=== PATIENT | male | born 1960 | race American Indian/Alaskan Native ===

== ENCOUNTER 2016-12-07 19:59 | Emergency (ER) | payer MEDICAID ==
[2016-12-07 20:57] LABS: SQUAMOUS EPITHIAL < 1 /hpf (0-5); URINE BACTERIA RARE (<OCC); URINE BILIRUBIN NEGATIVE (NEGATIVE); URINE BLOOD 1+ (NEGATIVE); URINE CLARITY Clear (Clear); URINE COLOR Yellow (YELLOW); URINE GLUCOSE (UA) NORMAL (Normal); URINE LEUKOCYTE ESTERASE NEG Leu/uL (Negative); URINE NITRATE NEGATIVE (NEGATIVE); URINE PROTEIN NEGATIVE (NEGATIVE); URINE UROBILINOGEN NORMAL mg/dL (0.2-1.0)
[2016-12-07 21:00] LABS: BARBITURATES, UR NEGATIVE (NEGATIVE)
[2016-12-07 21:01] LABS: BENZODIAZEPINES, UR NEGATIVE (NEGATIVE)
[2016-12-07 21:03] LABS: BASO % 0.6 % (0.0-2.0); EOS % 0.7 % (0.0-4.0); HEMOGLOBIN 14.7 g/dL (12.0-18.0); LYMPH % 22.7 % (20.0-40.0); MEAN CELL VOLUME 84.8 fL (80.0-94.0); MEAN CORPUSCULAR HEMOGLOBIN 28.2 pg (27.0-31.0); MEAN CORPUSCULAR HGB CONC 33.2 g/dL (33.0-37.0); MEAN PLATELET VOLUME 7.9 fL (7.2-11.7); MONO # 0.5 K/uL (0.0-0.8); MONO % 10.7 % (0.0-10.0); NEUT # 2.8 K/uL (1.8-7.0); NEUT % 65.3 % (50.0-75.0); RBC 5.2 Mil/uL (4.40-5.90); RED CELL DISTRIBUTION WIDTH 15.1 % (11.5-14.5); WHITE BLOOD COUNT 4.3 K/uL (4.8-10.8)
[2016-12-07 21:04] LABS: OPIATES, UR POSITIVE (NEGATIVE)
[2016-12-07 21:05] LABS: PHENCYCLIDINE, UR NEGATIVE (NEGATIVE)
[2016-12-07 21:11] LABS: ALBUMIN 4.1 g/dL (3.5-5.0)
[2016-12-07 21:14] LABS: ALB/GLOB RATIO 1.2 (1.0-2.1); AST/SGOT 39 U/L (17-59); BLOOD UREA NITROGEN 18 mg/dL (9-20); GFR AFRICAN-AMERICAN > 60; GFR NON-AFRICAN AMERICAN > 60
[2016-12-07 21:15] LABS: ALT/SGPT 42 U/L (21-72); CALCIUM 9.3 mg/dl (8.6-10.4); LIPASE 26 U/L (23-300)
--- NOTE | 2016-12-07 21:43 | C.PDOC ---
History Of Present Illness A 56 y/o M c/o cramping lower abdominal pain that began today. Pt is a persistent heroin abuser and admits to using 5 bags up his nose today. Denies fever, chills, nausea, vomiting, diarrhea, chest pain, SOB, or any other complaints. Time Seen by Provider: 12/07/16 20:28 Chief Complaint (Nursing): Abdominal Pain History Per: Patient History/Exam Limitations: no limitations Onset/Duration Of Symptoms: Hrs Current Symptoms Are (Timing): Still Present Severity: Mild Location Of Pain/Discomfort: LUQ, LLQ Radiation Of Pain To:: None Quality Of Discomfort: Cramping Recent travel outside of the [place]: No Additional History Per: Patient Past Medical History Reviewed: Historical Data, Nursing Documentation, Vital Signs Vital Signs: Last Vital Signs Temp 97.6 F 12/07/16 21:50 Pulse 59 L 12/07/16 21:50 Resp 16 12/07/16 21:50 BP 118/67 12/07/16 21:50 Pulse Ox 98 12/07/16 21:50 - Medical History PMH: Anxiety, Bipolar Disorder, COPD, Depression, Emphysema, HTN Denies: Diabetes, Hepatitis, HIV, Seizures, Sexually Transmitted Disease - [facility] Procedures DETOXIFICATION SERVICES FOR SUBSTANCE ABUSE TREATMENT (08/11/15) DRUG DETOXIFICATION (10/29/14) INDIV PSYCHOTHERAPY FOR SUBSTANCE ABUSE TREATMENT, SUPPORT (08/11/15) NONEXCIS DEBRID OF WOUND, INFECT, OR BURN (10/29/14) Family History: States: Unknown Family Hx - Social History Hx Tobacco Use: Yes Hx Alcohol Use: Yes Hx Substance Use: Yes (heroin) - Immunization History Hx Tetanus Toxoid Vaccination: No Hx Influenza Vaccination: No Hx Pneumococcal Vaccination: No Review Of Systems Except As Marked, All Systems Reviewed And Found Negative. Constitutional: Negative for: Fever, Chills Cardiovascular: Negative for: Chest Pain Respiratory: Negative for: Shortness of Breath Gastrointestinal: Positive for: Abdominal Pain. Negative for: Nausea, Vomiting , Diarrhea Physical Exam - Physical Exam Appears: Non-toxic, No Acute Distress, Other (Thin, elderly man) Skin: Warm, Dry Head: Atraumatic, Normacephalic Eye(s): bilateral: Abnormal Pupil ([place]) Cardiovascular: Rhythm Regular Respiratory: Normal Breath Sounds, No Accessory Muscle Use, No Rales, No Rhonchi , No Wheezing Gastrointestinal/Abdominal: Soft, No Tenderness, No Guarding, No Rebound Neurological/Psych: Oriented x3, Normal Speech, Normal Cognition ED Course And Treatment - Laboratory Results Result Diagrams: 12/07/16 21:00 12/07/16 21:00 Lab Interpretation: Abnormal (tox + opiates, UA neg.) O2 Sat by Pulse Oximetry: 100 (RA) Pulse Ox Interpretation: Normal - Radiology CXR: Interpreted by Me CXR Interpretation: Yes: No Acute Disease - Other Rad abd x 2 X-Ray: Interpreted by Me (+increased stool/gas R lower abd) Medical Decision Making Medical Decision Making: Impression: 56 y/o M c/o cramping lower abdominal pain that began today. chronic constipation due to chronic narcotics use. Disposition Doctor Will See Patient In The: Office Counseled Patient/Family Regarding: Studies Performed, Diagnosis - Disposition Referrals: Alcoholics Anonymous [Outside] [facility] [Outside] [facility] [Outside] [facility] [Outside] [facility] [Outside] Dequan Dill MD [Staff Provider] - Disposition: HOME/ ROUTINE Disposition Time: 21:43 Condition: GOOD Additional Instructions: drink a bottle of laxative now (Mag Citrate) for your constipation Seek Narcotics abuse programs. Follow-up with your PMD Instructions: Narcotic Abuse (ED), Gas and Bloating (ED) - Clinical Impression Clinical Impression: Abdominal colic, Opioid dependence - Scribe Statement The provider has reviewed the documentation as recorded by the Scribe Deny rodarte All medical record entries made by the Scribe were at my direction and personally dictated by me. I have reviewed the chart and agree that the record accurately reflects my personal performance of the history, physical exam, medical decision making, and the department course for this patient. I have also personally directed, reviewed, and agree with the discharge instructions and disposition.
--- NOTE | 2016-12-08 11:13 | RAD ---
PROCEDURE: Radiographs of the chest and abdomen (obstructive series) HISTORY: abd pain COMPARISON: No prior. TECHNIQUE: AP radiograph of the chest, with upright and supine radiographs of the abdomen. FINDINGS: CHEST: Lungs: Clear. Cardiovascular: Normal size heart. No pulmonary vascular congestion. Pleura: No pleural fluid. No pneumothorax. Other findings: None. ABDOMEN AND PELVIS: Bowel: Unremarkable bowel gas pattern. No evidence of mechanical obstruction. Free air: None. Bones: Unremarkable. Other findings: None. IMPRESSION: Mild constipation. Otherwise unremarkable radiographs of chest and abdomen. No evidence of mechanical bowel obstruction.
[2016-12-08 12:09] VITALS: BP 118/67; PULSE 59; RESP 16; TEMP 97.6; O2SAT 100
== END 2016-12-07 21:51 | disposition home or self-care (01) ==
LOC: C.ER 19:59
DX: R10.84 Generalized abdominal pain (principal); F11.20 Opioid dependence, uncomplicated

== ENCOUNTER 2017-02-25 07:02 | Observation (INO) | payer MEDICAID ==
[2017-02-25 07:11] VITALS: BP 152/92; RESP 18; TEMP 98.5; O2SAT 96
--- NOTE | 2017-02-25 08:34 | C.PDOC ---
History Of Present Illness 56 year old male presents to the emergency department for alcohol intoxication. Patient admits to ETOH use today, and has no other medical complaints at this time. He denies suicidal ideation, homicidal ideation, fever, chills, shortness of breath, cough, chest pain, palpitations, abdominal pain, nausea, vomiting, dysuria, hematuria, headache, and dizziness. Time Seen by Provider: 02/25/17 07:23 Chief Complaint (Nursing): Substance Abuse History Per: Patient History/Exam Limitations: no limitations Current Symptoms Are (Timing): Still Present Modifying Factor(s): Alcohol Recent travel outside of the [place]: No Past Medical History Reviewed: Historical Data, Nursing Documentation, Vital Signs Vital Signs: Last Vital Signs Temp 98.5 F 02/25/17 07:08 Pulse 18 L 02/25/17 11:19 Resp 18 02/25/17 07:08 BP 152/92 H 02/25/17 07:08 Pulse Ox 96 02/25/17 08:34 - Medical History PMH: Anxiety, Bipolar Disorder, COPD, Depression, Emphysema, HTN - [facility] Procedures DETOXIFICATION SERVICES FOR SUBSTANCE ABUSE TREATMENT (08/11/15) DRUG DETOXIFICATION (10/29/14) INDIV PSYCHOTHERAPY FOR SUBSTANCE ABUSE TREATMENT, SUPPORT (08/11/15) NONEXCIS DEBRID OF WOUND, INFECT, OR BURN (10/29/14) Family History: States: Unknown Family Hx - Social History Hx Tobacco Use: Yes Hx Alcohol Use: Yes Hx Substance Use: Yes (stopped) - Immunization History Hx Tetanus Toxoid Vaccination: No Hx Influenza Vaccination: No Hx Pneumococcal Vaccination: No Review Of Systems Except As Marked, All Systems Reviewed And Found Negative. Constitutional: Negative for: Fever, Chills Cardiovascular: Negative for: Chest Pain Respiratory: Negative for: Cough, Shortness of Breath Gastrointestinal: Negative for: Nausea, Vomiting Skin: Negative for: Rash Physical Exam - Physical Exam Appears: Non-toxic, No Acute Distress Skin: Normal Color, Warm, Dry Head: Atraumatic, Normacephalic Eye(s): bilateral: Normal Inspection, PERRL, EOMI Oral Mucosa: Moist Neck: Normal ROM, Supple Chest: Symmetrical Cardiovascular: Rhythm Regular, No Friction Rub, No Murmur Respiratory: Normal Breath Sounds, No Rales, No Rhonchi, No Wheezing Gastrointestinal/Abdominal: Soft, No Tenderness Back: Normal Inspection, No CVA Tenderness Extremity: Normal ROM, Capillary Refill (< 2 sec. ) Neurological/Psych: Oriented x3, Normal Speech, Normal Cognition, Normal Motor, Normal Sensation Gait: Steady ED Course And Treatment O2 Sat by Pulse Oximetry: 96 (RA) Pulse Ox Interpretation: Normal Progress Note: On reassessment, patient is resting comfortably, and is in no acute distress. Patient instructed to follow up with clinic/PMD within 1-2 days. Medical Decision Making Medical Decision Making: Meal given. On re-eval, the patient reports improvement of symptoms. Lungs are CTA, heart is RRR, ambulatory in the ED with steady. Abdomen is soft, non- tender and the patient is tolerating PO well. Follow up with the medical doctor /clinic within 1-2 days. Return if worsened. Disposition - Disposition Disposition: ELOPEMENT - ER ONLY Disposition Time: 10:00 Condition: FAIR - Clinical Impression Clinical Impression: Alcohol abuse, Hunger - PA / STUDY COORDINATOR / Resident Statement MD/DO has reviewed & agrees with the documentation as recorded. - Scribe Statement The provider has reviewed the documentation as recorded by the Mert Lemus All medical record entries made by the Mert were at my direction and personally dictated by me. I have reviewed the chart and agree that the record accurately reflects my personal performance of the history, physical exam, medical decision making, and the department course for this patient. I have also personally directed, reviewed, and agree with the discharge instructions and disposition.
[2017-02-25 11:20] VITALS: PULSE 18
== END 2017-02-25 11:19 | disposition home or self-care (01) ==
LOC: C.ER 07:02 → C.9OBSV 10:11
PROVIDERS: ADMIT Emergency Medicine; ATTEND Emergency Medicine
DX: F10.129 Alcohol abuse with intoxication, unspecified (principal); F31.9 Bipolar disorder, unspecified; I10 Essential (primary) hypertension; J44.9 Chronic obstructive pulmonary disease, unspecified; F17.210 Nicotine dependence, cigarettes, uncomplicated
CPT/HCPCS: 99283; G0378

== ENCOUNTER 2018-04-24 23:39 | Emergency (ER) | payer MEDICAID ==
--- NOTE | 2018-04-25 00:11 | C.PDOC ---
History Of Present Illness 57 year old male is brought to the ED by EMS for public intoxication. Patient was found inebriated on the street. Patient admits to drinking alcohol tonight. Patient denies SI/HI, hallucinations, injury, fall, trauma. Time Seen by Provider: 04/25/18 00:11 Chief Complaint (Nursing): Substance Abuse History Per: Patient, EMS History/Exam Limitations: intoxication Onset/Duration Of Symptoms: Hrs Current Symptoms Are (Timing): Still Present Suicide/Self Injury Attempted (Context): None Modifying Factor(s): Alcohol Associated Symptoms: denies: Depression, Suicidal Thoughts, Suicidal Plan Recent travel outside of the [place]: No Additional History Per: Patient, EMS Past Medical History Reviewed: Historical Data, Nursing Documentation, Vital Signs - Medical History PMH: Anxiety, Bipolar Disorder, COPD, Depression, Emphysema, HTN Denies: HIV, Seizures, Sexually Transmitted Disease Surgical History: No Surg Hx - [facility] Procedures DETOXIFICATION SERVICES FOR SUBSTANCE ABUSE TREATMENT (08/11/15) DRUG DETOXIFICATION (10/29/14) INDIV PSYCHOTHERAPY FOR SUBSTANCE ABUSE TREATMENT, SUPPORT (08/11/15) NONEXCIS DEBRID OF WOUND, INFECT, OR BURN (10/29/14) Family History: States: Unknown Family Hx - Social History Hx Tobacco Use: Yes Hx Alcohol Use: Yes Hx Substance Use: Yes (stopped) - Immunization History Hx Tetanus Toxoid Vaccination: No Hx Influenza Vaccination: No Hx Pneumococcal Vaccination: No Review Of Systems Constitutional: Negative for: Fever, Chills Cardiovascular: Negative for: Chest Pain Respiratory: Negative for: Shortness of Breath Gastrointestinal: Negative for: Nausea, Vomiting, Abdominal Pain Skin: Negative for: Rash Psych: Negative for: Depression, Suicidal ideation Physical Exam - Physical Exam Appears: Non-toxic, No Acute Distress, Other (intoxicated) Skin: Warm, Dry Head: Normacephalic Eye(s): bilateral: Normal Inspection Neck: Supple Chest: Symmetrical Cardiovascular: Rhythm Regular Respiratory: No Rales, No Rhonchi, No Wheezing Gastrointestinal/Abdominal: Soft, No Tenderness Extremity: Bilateral: Atraumatic, Normal Color And Temperature, Normal ROM Neurological/Psych: Oriented x3, Slow To Respond With Command (due to alcohol ) Gait: Steady ED Course And Treatment - Laboratory Results Result Diagrams: 04/25/18 00:23 04/25/18 00:23 O2 Sat by Pulse Oximetry: 97 (ON RA) Pulse Ox Interpretation: Normal Progress Note: Plan: - Labs. - UA Disposition Counseled Patient/Family Regarding: Studies Performed, Diagnosis - Disposition Disposition Time: 00:11 Condition: FAIR Forms: [facility] (Serbian) - Clinical Impression Clinical Impression: Alcohol intoxication - Scribe Statement The provider has reviewed the documentation as recorded by the Scribe Salbador Oates All medical record entries made by the Scribe were at my direction and personally dictated by me. I have reviewed the chart and agree that the record accurately reflects my personal performance of the history, physical exam, medical decision making, and the department course for this patient. I have also personally directed, reviewed, and agree with the discharge instructions and disposition. Physician Patient Turnover Patient Signed Over To: Desean Bland Handoff Comments: pending sobriety
[2018-04-25 00:27] LABS: BASO % 0.6 % (0.0-2.0); EOS % 0.7 % (0.0-4.0); HEMOGLOBIN 13.6 g/dL (12.0-18.0); LYMPH # 1.6 K/uL (1.0-4.3); LYMPH % 25.7 % (20.0-40.0); MEAN CORPUSCULAR HEMOGLOBIN 29.2 pg (27.0-31.0); MEAN CORPUSCULAR HGB CONC 33.2 g/dL (33.0-37.0); MEAN PLATELET VOLUME 7.6 fL (7.2-11.7); MONO # 0.7 K/uL (0.0-0.8); MONO % 11.7 % (0.0-10.0); NEUT # 3.9 K/uL (1.8-7.0); NEUT % 61.3 % (50.0-75.0); RBC 4.67 Mil/uL (4.40-5.90); RED CELL DISTRIBUTION WIDTH 14.1 % (11.5-14.5); WHITE BLOOD COUNT 6.4 K/uL (4.8-10.8)
[2018-04-25 00:29] LABS: URINE BILIRUBIN NEGATIVE (NEGATIVE); URINE BLOOD NEGATIVE (NEGATIVE); URINE CLARITY Clear (Clear); URINE COLOR Straw (YELLOW); URINE GLUCOSE (UA) NORMAL (Normal); URINE LEUKOCYTE ESTERASE NEG Leu/uL (Negative); URINE PROTEIN NEGATIVE (NEGATIVE); URINE UROBILINOGEN NORMAL mg/dL (0.2-1.0)
[2018-04-25 00:40] LABS: ALB/GLOB RATIO 1.1 (1.0-2.1); ALBUMIN 4.4 g/dL (3.5-5.0); ALT/SGPT 28 U/L (21-72); AST/SGOT 54 U/L (17-59); BLOOD UREA NITROGEN 17 mg/dL (9-20); CALCIUM 9.2 mg/dl (8.6-10.4); GFR NON-AFRICAN AMERICAN > 60
[2018-04-25] MEDS ORDERED: Sodium Chloride 0.9% 1,000 ML IV ONE (00:41)
[2018-04-25] MEDS ORDERED: Sodium Chloride 0.9% 1,000 ML ONE (00:48)
[2018-04-25 00:59] LABS: BARBITURATES, UR NEGATIVE (NEGATIVE); BENZODIAZEPINES, UR NEGATIVE (NEGATIVE); OPIATES, UR NEGATIVE (NEGATIVE); PHENCYCLIDINE, UR NEGATIVE (NEGATIVE)
[2018-04-25 08:26] VITALS: RESP 20
[2018-04-25 09:21] VITALS: BP 124/78; PULSE 74; TEMP 98; O2SAT 100
== END 2018-04-25 09:42 | disposition home or self-care (01) ==
LOC: C.ER 23:39
DX: F10.129 Alcohol abuse with intoxication, unspecified (principal); Y90.8 Blood alcohol level of 240 mg/100 ml or more
CPT/HCPCS: 80053; 80320; 80324; 80345; 80346; 80349; 80353; 80358; 80361; 81001; 82948; 83735; 83992; 84100; 85025; 96361; 96374; 99285; J2060; J7030

== ENCOUNTER 2018-08-18 07:08 | Emergency (ER) | payer MEDICAID ==
[2018-08-18 07:18] VITALS: BP 124/82; PULSE 96; RESP 18; TEMP 98.5; O2SAT 98
== END 2018-08-18 08:02 | disposition left against medical advice (07) ==
LOC: C.ER 07:08
DX: Z02.89 Encounter for other administrative examinations (principal); M54.9 Dorsalgia, unspecified